=== PATIENT | male | born 1990 | race Caucasian/White ===

== ENCOUNTER 2017-04-12 05:39 | Day surgery (SDC) | payer BC ==
[2017-04-12 06:16] VITALS: BP 120/70; BMI 34.5
--- NOTE | 2017-04-12 10:36 | HP ---
PATIENT: CHRIS LINDA MEDICAL RECORD: [id number] ACCOUNT: [id number] LOCATION:[facility] : 92 ADMISSION DATE: 04/12/17 HISTORY AND PHYSICAL EXAMINATION HISTORY OF PRESENT ILLNESS: Chris is 27-year-old. He has had chronic problems with his ears. His last set of T-tubes was about 5 years ago, those have become nonfunctional. He has got severe retraction and mucoid effusion and he is being admitted for bilateral myringotomy and T-tubes. PAST MEDICAL HISTORY: Otherwise negative. PAST SURGICAL HISTORY: Chest tube in 2015, bilateral myringotomy and tubes. Last set was in 2013. PHYSICAL EXAMINATION: GENERAL: He is healthy-appearing, developmentally normal. FACE: Normal, symmetric, no lesions. EYES: Sclerae and conjunctivae are normal. EARS: The left ear has a tiny TM perforation where one flange of the tube was poking through there, but it has got significant retraction. The right ear has severe atelectasis and a mucoid effusion. NOSE: No mass, polyps or drainage. ORAL CAVITY AND OROPHARYNX: Tongue protrudes in midline. Palate is normal. NECK: No masses, no adenopathy. CHEST: Clear. CARDIOVASCULAR: Regular rate and rhythm, no murmur. EXTREMITIES: Normal. IMPRESSION: Bilateral chronic otitis media and conductive hearing loss. PLAN: Bilateral myringotomy and T-tubes. TRANSINT:[id number] Voice Confirmation ID: [id number] DOCUMENT ID: [id number] SCARLET ARCHULETA MD at 1036 CC: [id number] DICTATION DATE: 04/08/17 0948 [employer] TENDER: 04/08/[address] [place] [address] 04/12/17 [id number] [place] [address]
--- NOTE | 2017-04-19 17:12 | OP ---
PATIENT NAME: CHRIS LINDA MEDICAL RECORD: [id number] :89 LOCATION:[facility] ADMISSION DATE: SURGEON: JF CHRISTINE MD DATE OF OPERATION: 04/12/2017 PREOPERATIVE DIAGNOSES: Bilateral chronic otitis media and conductive hearing loss. POSTOPERATIVE DIAGNOSES: Bilateral chronic otitis media and conductive hearing loss. PROCEDURE: Bilateral myringotomy and tubes. SURGEON: Jf Christine MD ANESTHESIA: General. COMPLICATIONS: None. DISPOSITION: Recovery stable. TUBES: T-tubes bilaterally. FINDINGS: Thick mucoid effusions and severe retraction bilaterally. DESCRIPTION OF PROCEDURE: He was brought to the operating room and placed in supine position, sedated by anesthesia. The right ear was examined under the microscope. Cerumen was cleaned with a curet. A lot of crusted cerumen was removed. The TM was intact. There was severe anterior retraction onto the promontory inferiorly. A radial anterior myringotomy was made and extremely thick almost solid type material was removed from the middle ear, can be grasped with a forceps and pulled out as well as with a #7 suction. T-tube was placed in good position. Floxin drops and a cotton ball were placed. The left ear was examined and then again, cerumen was cleaned with a curet. The canal was normal. TM was dull and retracted. Again, a radial anterior myringotomy was made and again extremely thick viscous mucoid effusion was suctioned not quite as that on the right side. Then the T-tube was placed and positioned nicely. Floxin drops and a cotton ball were placed. There was no bleeding. He was awakened and transported to recovery in good condition. No complications. TRANSINT:[id number] Voice Confirmation ID: [id number] DOCUMENT ID: [id number] JF CHRISTINE MD at 1712 CC: [id number] DICTATION DATE: 04/12/17922 [employer] SALES REPRESENTATIVE: 04/12/17 1239 [facility] 04/12/[address] [address]
== END 2017-04-12 09:20 | disposition home or self-care (01) ==
LOC: D.OPS 05:39 → D.PAN 08:00 → D.OPS 08:00
DX: H66.93 Otitis media, unspecified, bilateral (principal); H90.2 Conductive hearing loss, unspecified